=== PATIENT | female | born 1960 | race Two or more races ===

== ENCOUNTER 2020-09-29 08:30 | Inpatient (IN) | payer OTHER ==
[~2020-09-29] VITALS: Ht 154.9 cm; Wt 70.3 kg
[2020-09-30] MEDS ORDERED: COZAAR50 MG PO (09:07)
[2020-09-30] MEDS ORDERED: LIPITOR40 MG PO (09:08)
[2020-09-30] MEDS ORDERED: CELEBREX200MG PO (09:08)
[2020-10-09] MEDS ORDERED: ELIQUIS2.5 MG PO (07:43)
[2020-10-09] MEDS ORDERED: PERCOCET 5-3251 EACH PO (07:43)
[2020-10-09] MEDS ORDERED: DUI500 PO (07:43)
[2020-10-09] MEDS ORDERED: ULTRACET PO (07:50)
== END 2020-10-09 20:05 | DRG 470 ==
LOC: EDSTATUS 08:30 → O/R 10-06 06:40 → SURH 10-06 06:40
PROVIDERS: ADMIT Orthopaedic Surgery; ATTEND Orthopaedic Surgery
PROC: 0SR90JZ Replacement of Right Hip Joint with Synthetic Substitute, Open Approach (ICD-10-PCS; principal; 2020-10-06 16:00)
DX: M16.11 Unilateral primary osteoarthritis, right hip (principal); D62 Acute posthemorrhagic anemia; M70.61 Trochanteric bursitis, right hip; I10 Essential (primary) hypertension

== ENCOUNTER 2023-09-23 22:06 | Inpatient (IN) | payer OTHER ==
[~2023-09-23] VITALS: Ht 157.5 cm; Wt 72.6 kg
[~2023-09-23 22:06] MED LIST: CELEBREX200MG PO; COZAAR50 MG PO; DUI500 PO; ELIQUIS2.5 MG PO; LIPITOR40 MG PO; PERCOCET 5-3251 EACH PO; ULTRACET PO
[2023-09-23] MEDS ORDERED: MORPHINE SULFATE 4 MG/ML CARTRIDGE IV ONE (22:30)
[2023-09-23 23:10] LABS: HEMOGLOBIN 13.4 g/dL (12.0-15.00); MEAN CELL VOLUME 98.2 fL (80.00-100.00); MEAN CORPUSCULAR HEMOGLOBIN 33.7 pg (27.00-32.0); MEAN CORPUSCULAR HGB CONC 34.3 g/dl (32.0-36.0); PLATELET COUNT 296 K/uL (150-450); RED BLOOD COUNT 3.98 M/uL (4.00-6.00); RED CELL DISTRIBUTION WIDTH 13.1 % (11.5-14.5); URINE APPEARANCE Clear; URINE BILIRRUBIN Negative (NEGATIVE); URINE BLOOD Small; URINE COLOR Yellow; URINE GLUCOSE Negative (NEGATIVE); URINE LEUKOCYTE Small; URINE NITRATE Negative; URINE PROTEIN 30 (NEGATIVE); URINE UROBILINOGEN 0.2 E.U./dl
[2023-09-23 23:14] LABS: URINE BACTERIA 648.8 uL (0.0-1933); URINE EPITHELIAL CELLS 20.8 uL (0.0-38.8); URINE RBC 12.9 uL (0.0-20.8); URINE WBC 50.6 uL (0.0-23.2)
[2023-09-23] MEDS ORDERED: MORPHINE SULFATE 4 MG/ML VIAL IV PRN (23:45)
[2023-09-24 00:03] LABS: INR 0.97; PARTIAL THROMBOPLASTIN TIME 29.2 SECONDS (22.0-34.0); PROTHROMBIN TIME 10.2 SECONDS (9.0-11.5)
[2023-09-24 00:05] LABS: CALCIUM 8.8 mg/dL (8.5-10.1); CREATININE SERUM 0.52 mg/dL (0.55-1.02); GFR 119.49; POTASSIUM 4.04 mEq/L (3.5-5.1)
[2023-09-24] MEDS ORDERED: FLUMAZENIL 0.5 MG/5ML ML IV ONE (08:45)
[2023-09-24] MEDS ORDERED: PROMETHAZINE HCL 50 MG/ML AMPUL IM PRN ×2 (08:45→10:45)
[2023-09-24] MEDS ORDERED: CEFAZOLIN SODIUM 1,000 MG VIAL IV ONE ×2 (08:45→10:45)
[2023-09-24] MEDS ORDERED: MEPERIDINE HCL/PF 50 MG/ML VIAL IM PRN ×2 (08:45→10:45)
[2023-09-24] MEDS ORDERED: 0.9 % SODIUM CHLORIDE 1,000 ML IV SCH ×2 (08:45→10:45)
[2023-09-24] MEDS ORDERED: MIDAZOLAM HCL 2 MG/2 ML VIAL IV PUSH ONE (09:00)
[2023-09-24 10:18] LABS: MAGNESIUM 2.3 mg/dL (1.8-2.4); PHOSPHOROUS 3.6 mg/dL (2.5-4.9)
[2023-09-24] MEDS ORDERED: KETOROLAC TROMETHAMINE 30 MG VIAL ONE (10:40)
[2023-09-24] MEDS ORDERED: OxyCODONE HCL/APAP UD (PERCOCET) PO PRN (10:45)
[2023-09-24] MEDS ORDERED: ENALAPRILAT DIHYDRATE 1.25 MG/ML VIAL IV PRN (13:45)
[2023-09-24] MEDS ORDERED: ENOXAPARIN SODIUM 40 MG/0.4 ML SYRINGE SUBCUTANEO STA (13:51)
[2023-09-24] MEDS ORDERED: FAMOTIDINE/PF 20 MG/2 ML VIAL IV SCH (13:51)
[2023-09-24] MEDS ORDERED: ENOXAPARIN SODIUM 40 MG/0.4 ML SYRINGE SUBCUTANEO ONE (14:15)
[2023-09-24] MEDS ORDERED: FAMOTIDINE/PF 20 MG/2 ML VIAL ONE (14:16)
[2023-09-24 14:49] LABS: HEMATOCRIT 40.2 % (36.0-45.00); HEMOGLOBIN 13.8 g/dL (12.0-15.00); MEAN CELL VOLUME 101.1 fL (80.00-100.00); MEAN CORPUSCULAR HEMOGLOBIN 34.7 pg (27.00-32.0); MEAN CORPUSCULAR HGB CONC 34.3 g/dl (32.0-36.0); PLATELET COUNT 248 K/uL (150-450); RED BLOOD COUNT 3.98 M/uL (4.00-6.00); RED CELL DISTRIBUTION WIDTH 12.8 % (11.5-14.5)
[2023-09-24 15:05] LABS: URINE APPEARANCE Clear; URINE BILIRRUBIN Negative (NEGATIVE); URINE BLOOD Moderate; URINE COLOR Yellow; URINE GLUCOSE Negative (NEGATIVE); URINE LEUKOCYTE Trace; URINE NITRATE Negative; URINE PROTEIN Negative (NEGATIVE); URINE UROBILINOGEN 0.2 E.U./dl
[2023-09-24 15:06] LABS: URINE EPITHELIAL CELLS 2.7 uL (0.0-38.8); URINE RBC 62.9 uL (0.0-20.8); URINE WBC 16.6 uL (0.0-23.2)
[2023-09-24] MEDS ORDERED: ATORVASTATIN CALCIUM 40 MG TABLET PO SCH (17:00)
[2023-09-24] MEDS ORDERED: TRAMADOL HCL 50 MG TABLET PO PRN (19:15)
[2023-09-24] MEDS ORDERED: SODIUM CHLORIDE 0.45 % 1,000 ML IV SCH (19:30)
[2023-09-25 07:21] LABS: HEMATOCRIT 36.3 % (36.0-45.00); HEMOGLOBIN 12.5 g/dL (12.0-15.00); MEAN CORPUSCULAR HEMOGLOBIN 33.7 pg (27.00-32.0); MEAN CORPUSCULAR HGB CONC 34.4 g/dl (32.0-36.0); PLATELET COUNT 264 K/uL (150-450); RED CELL DISTRIBUTION WIDTH 12.8 % (11.5-14.5)
[2023-09-25 07:46] LABS: CALCIUM 9.2 mg/dL (8.5-10.1); CREATININE SERUM 0.54 mg/dL (0.55-1.02); GFR 114.39; MAGNESIUM 2.3 mg/dL (1.8-2.4); PHOSPHOROUS 3.5 mg/dL (2.5-4.9); POTASSIUM 4.82 mEq/L (3.5-5.1)
[2023-09-25] MEDS ORDERED: LOSARTAN POTASSIUM 50 MG TABLET PO SCH (09:00)
[2023-09-25] MEDS ORDERED: CEFAZOLIN SODIUM 1,000 MG VIAL ONE (16:29)
[2023-09-25] MEDS ORDERED: VANCOMYCIN HCL 1,000 MG VIAL ONE (16:29)
[2023-09-25] MEDS ORDERED: POVIDONE-IODINE 3 EA MED..SWAB TOP ONE (16:30)
[2023-09-25] MEDS ORDERED: TRANEXAMIC ACID 100MG/1ML (1000MG) AMPUL IV ONE (16:52)
[2023-09-25] MEDS ORDERED: CEFAZOLIN SODIUM 1,000 MG VIAL IV SCH (17:30)
[2023-09-25] MEDS ORDERED: VANCOMYCIN HCL 1,000 MG VIAL IR SCH (17:30)
[2023-09-25] MEDS ORDERED: ONDANSETRON HCL 2 MG/ML VIAL IV PRN (17:45)
[2023-09-25] MEDS ORDERED: MORPHINE SULFATE 4 MG/ML CARTRIDGE IV PRN (17:45)
[2023-09-25] MEDS ORDERED: POVIDONE-IODINE 3 EA MED..SWAB TOP SCH (17:45)
[2023-09-25] MEDS ORDERED: SODIUM CHLORIDE 0.45 % 1,000 ML IV SCH (17:45)
[2023-09-25] MEDS ORDERED: OxyCODONE HCL 5 MG TABLET (ROXICODONE) PO PRN (17:45)
[2023-09-25] MEDS ORDERED: TRANEXAMIC ACID 100MG/1ML (1000MG) AMPUL IV SCH ×2 (17:45)
[2023-09-25] MEDS ORDERED: ACETAMINOPHEN 500 MG GEL..CAP PO SCH (18:00)
[2023-09-26] MEDS ORDERED: CEFAZOLIN SODIUM 1,000 MG VIAL IV SCH (01:00)
[2023-09-26] MEDS ORDERED: GABAPENTIN 300 MG CAPSULE PO SCH (01:00)
[2023-09-26 06:26] LABS: HEMOGLOBIN 12.2 g/dL (12.0-15.00); MEAN CELL VOLUME 99.3 fL (80.00-100.00); MEAN CORPUSCULAR HEMOGLOBIN 34.6 pg (27.00-32.0); MEAN CORPUSCULAR HGB CONC 34.8 g/dl (32.0-36.0); PLATELET COUNT 254 K/uL (150-450); RED BLOOD COUNT 3.53 M/uL (4.00-6.00); RED CELL DISTRIBUTION WIDTH 12.7 % (11.5-14.5)
[2023-09-26] MEDS ORDERED: SENNOSIDES 1 TAB TABLET PO SCH (09:00)
[2023-09-26] MEDS ORDERED: APIXABAN 2.5 MG TABLET PO SCH (09:00)
[2023-09-26] MEDS ORDERED: ELIQUIS2.5 MG PO (11:43)
[2023-09-26] MEDS ORDERED: PERCOCET 5-3251 EACH PO (11:43)
[2023-09-26] MEDS ORDERED: DUI500 PO (11:43)
[2023-09-27 06:01] LABS: HEMATOCRIT 34.3 % (36.0-45.00); MEAN CELL VOLUME 98.9 fL (80.00-100.00); MEAN CORPUSCULAR HEMOGLOBIN 34.5 pg (27.00-32.0); MEAN CORPUSCULAR HGB CONC 34.9 g/dl (32.0-36.0); PLATELET COUNT 250 K/uL (150-450); RED BLOOD COUNT 3.46 M/uL (4.00-6.00); RED CELL DISTRIBUTION WIDTH 12.6 % (11.5-14.5)
[2023-09-27] MEDS ORDERED: IRON FUM,PS/FOLIC ACID/VITC/B3 1 CAP CAPSULE PO SCH (09:00)
== END 2023-09-27 09:57 | disposition home or self-care (01) | DRG 468 ==
LOC: ER 22:06 → SURG 09-24 08:55 → O/R 09-24 08:55 → SEC-K 09-24 08:55 → O/R 09-24 09:47 → SURG 09-24 12:34
PROVIDERS: General Practice; Internal Medicine Geriatric Medicine; ADMIT Orthopaedic Surgery; ATTEND Orthopaedic Surgery
PROC: 0SSBXZZ Reposition Left Hip Joint, External Approach (ICD-10-PCS; 2023-09-24)
PROC: 0SPB0JZ Removal of Synthetic Substitute from Left Hip Joint, Open Approach (ICD-10-PCS; 2023-09-25)
PROC: 0SRB0JZ Replacement of Left Hip Joint with Synthetic Substitute, Open Approach (ICD-10-PCS; principal; 2023-09-25 16:00)
DX: T84.021A Dislocation of internal left hip prosthesis, initial encounter (principal); W18.30XA Fall on same level, unspecified, initial encounter; Y93.9 Activity, unspecified; Y92.009 Unspecified place in unspecified non-institutional (private) residence as the place of occurrence of the external cause; Y99.9 Unspecified external cause status; I10 Essential (primary) hypertension